=== PATIENT | male | born 1980 | race African-American/Black ===

== ENCOUNTER 2024-01-07 14:36 | Emergency (ER) | payer OTHER ==
[2024-01-07 15:12] LABS: Absolute Basophils 0.1 K/uL (0-0.5); Absolute Eosinophils 0.1 K/uL (0-0.5); Absolute Monocytes 0.5 K/uL (0.1-1.3); Absolute Neutrophil 2.8 K/uL (1.8-8.0); Eosinophils % 1.2 % (0-4.4); Hematocrit 41.2 % (39.6-49.0); Hemoglobin 13.8 g/dL (13.6-17.9); Lymphocytes % 36.6 % (15.3-44.8); MCH 24.5 pg (27.0-35.0); MCHC 33.4 g/dL (32.0-36.0); MCV 73.1 fL (80-100); MPV 9.6 fL (7.6-11.3); Monocytes % 8.7 % (3.3-12.3); Neutrophils % 52.5 % (41.7-73.7); Nucleated Red Blood Cells % 0.1 % (0-0); Platelets 297 thou/uL (152-406); RBC Red Blood Cell Count 5.64 M/uL (4.33-5.43)
[2024-01-07 15:24] LABS: PT Prothrombin Time 12.8 SECONDS (9.5-12.5); PTT, Activated Partial Thromb 32.8 SECONDS (24.3-36.9); Protime INR 1.17
[2024-01-07 15:35] LABS: ALT/SGPT 16 U/L (16-61); AST/SGOT 12 U/L (15-37); Albumin 3.9 g/dL (3.4-5.0); Alkaline Phosphatase 57 U/L (45-117); Anion Gap 7.7 mEq/L (5.0-15.0); BUN Blood Urea Nitrogen 13 mg/dL (7-18); Bicarbonate 30 mEq/L (21-32); Bilirubin Direct 0.3 mg/dL (0-0.2); Bilirubin Indirect, Calculated 0.9 mg/dL (0.2-0.8); Bilirubin Total 1.2 mg/dL (0.2-1.0); Globulin 4.1 g/dL (2.3-3.5); Glomerular Filtration Rate 85 ml/min (=/>90); Glucose Level 91 mg/dL (74-106); Potassium 3.7 mEq/L (3.5-5.1); Sodium Level 137 mEq/L (136-145)
[2024-01-07 15:40] LABS: Barbiturates NEGATIVE (NEGATIVE); Benzodiazepines NEGATIVE (NEGATIVE); Cocaine NEGATIVE (NEGATIVE); METHAMPHETAM NEGATIVE (NEGATIVE); Methadone NEGATIVE (NEGATIVE); Opiates NEGATIVE (NEGATIVE); Phencyclidine NEGATIVE (NEGATIVE); THC Cannibis NEGATIVE (NEGATIVE)
--- NOTE | 2024-01-07 16:07 | ER ---
Nurse's Notes [facility] Name: Des Workman Age: 43 yrs Sex: Male : 1980 Arrival Date: 01/07/2024 Time: 14:36 Bed 17 Private MD: Diagnosis: Altered mental status, unspecified Presentation: 01/06 14:37 Chief complaint: EMS states: "Drank coffee" at [facility] - went unresponsive. EMS ld1 administered Narcan, pt AAOX4 upon arrival to ER. Coronavirus screen: At this time, the client does not indicate any symptoms associated with coronavirus-19. Ebola Screen: No symptoms or risks identified at this time. Risk Assessment: Do you want to hurt yourself or someone else? Patient reports no desire to harm self or others. Onset of symptoms was January 07, 2024 at 14:38. 14:37 Method Of Arrival: Ambulatory ld1 14:37 Acuity: ROGELIO 3 ld1 14:37 Initial Sepsis Screen: Does the patient meet any 2 criteria? No. Patient's initial ld1 sepsis screen is negative. Does the patient have a suspected source of infection? No. Patient's initial sepsis screen is negative. Triage Assessment: 15:02 General: Appears in no apparent distress. comfortable, Behavior is calm, cooperative, ld1 appropriate for age. Pain: Denies pain. EENT: No signs and/or symptoms were reported regarding the EENT system. Neuro: Level of Consciousness is awake, alert, obeys commands, Oriented to person, place, time, situation. Cardiovascular: Capillary refill < 3 seconds Patient's skin is warm and dry. Respiratory: Airway is patent Respiratory effort is even, unlabored. GI: Abdomen is flat, non-distended. : No signs and/or symptoms were reported regarding the genitourinary system. Derm: No signs and/or symptoms reported regarding the dermatologic system. Musculoskeletal: No signs and/or symptoms reported regarding the musculoskeletal system. Historical: - Allergies: 15:02 No Known Allergies; ld1 - PMHx: 15:02 Diabetes mellitus; Depressive disorder; Hypertensive disorder; ld1 - Immunization history:: Adult Immunizations up to date. - Infectious Disease History:: Denies. - Social history:: Smoking status: Patient denies any tobacco usage or history of. Patient/guardian denies using alcohol. Screenin:13 [facility] ED Fall Risk Assessment (Adult) History of falling in the last 3 months, ld1 including since admission No falls in past 3 months (0 pts). Abuse screen: Denies threats or abuse. Denies injuries from another. Nutritional screening: No deficits noted. Tuberculosis screening: No symptoms or risk factors identified. Assessment: 15:13 Reassessment: See triage assessment. ld1 Vital Signs: 15:02 BP 151 / 83; Pulse 81; Resp 18; Pulse Ox 99% on R/A; ld1 15:13 Weight 113.4 kg; Height 6 ft. 0 in. ; Pain 0/10; ld1 15:13 BP 151 / 82; Pulse 79; Resp 18; Pulse Ox 100% on R/A; ld1 15:59 BP 138 / 79; Pulse 87; Resp 18; Pulse Ox 99% on R/A; ld1 15:13 Body Mass Index 33.91 (113.40 kg, 182.88 cm) ld1 15:13 Pain Scale: Adult ld1 ED Course: 14:36 Patient arrived in ED. jh7 14:37 Zahra Jerome FNP is PHCP. jh7 14:37 Jhony Sexton DO is Attending Physician. jh7 14:38 Triage completed. ld1 15:01 Milana Sexton, RN is Primary Nurse. ld1 15:02 Urine Drug Screen Sent. ld1 15:13 No provider procedures requiring assistance completed. Inserted saline lock: 20 gauge ld1 in left antecubital area, using aseptic technique. Blood collected. 15:13 Arm band placed on right wrist. EKG completed in triage. Results shown to MD. ld1 15:13 Patient has correct armband on for positive identification. Placed in gown. Bed in low ld1 position. Call light in reach. Side rails up X2. panel monitor on. Pulse ox on. NIBP on. Door closed. Noise minimized. Warm blanket given. 16:14 IV discontinued, intact, bleeding controlled, No redness/swelling at site. ld1 16:14 Provided Education on: discharge instructions. ld1 Administered Medications: No medications were administered Medication: 15:13 VIS not applicable for this client. ld1 Outcome: 16:06 Discharge ordered by . [facility] 16:13 Discharged to Law Enforcement ld1 16:13 Condition: stable 16:13 Discharge instructions given to patient, police, Instructed on discharge instructions, follow up and referral plans. Demonstrated understanding of instructions, follow-up care, 16:15 Patient left the ED. ld1 Signatures: Milana Sexton RN RN ld1 Zahra Jerome, CRIME SCENE EVIDENCE TECHNICIAN CRIME SCENE EVIDENCE TECHNICIAN jh7
--- NOTE | 2024-01-07 16:07 | EDPHYS ---
Physician Documentation [facility] Name: Des Workman Age: 43 yrs Sex: Male : 1980 Arrival Date: 01/07/2024 Time: 14:36 Bed 17 Private MD: ED Physician Jhony Sexton HPI: 01/06 15:02 This 43 yrs old Male presents to ER via Ambulatory with complaints of possible overdose.[facility] 15:02 The patient presents to the emergency department with a possible overdose. Context: [facility] Time: 2 hour(s) ago, the OD/poisoning occurred at [facility], Previous OD/poisoning history: none. 43-year-old inmate was drinking his coffee and was found unresponsive shortly after. EMS gave 1 mg of Narcan at 12:55 PM and the patient very shortly after became alert and oriented x 4. He is alert and oriented x 4 in the ER and has no complaints. He denies ingesting anything other than his coffee.. Historical: - Allergies: 15:02 No Known Allergies; ld1 - PMHx: 15:02 Diabetes mellitus; Depressive disorder; Hypertensive disorder; ld1 - Immunization history:: Adult Immunizations up to date. - Infectious Disease History:: Denies. - Social history:: Smoking status: Patient denies any tobacco usage or history of. Patient/guardian denies using alcohol. ROS: 15:02 Constitutional: Negative for fever, chills, and weight loss, Eyes: Negative for injury, jh7 pain, redness, and discharge, Neck: Negative for injury, pain, and swelling, Cardiovascular: Negative for chest pain, palpitations, and edema, Respiratory: Negative for shortness of breath, cough, wheezing, and pleuritic chest pain, Abdomen/GI: Negative for abdominal pain, nausea, vomiting, diarrhea, and constipation, MS/Extremity: Negative for injury and deformity, Skin: Negative for injury, rash, and discoloration, Neuro: Negative for headache, weakness, numbness, tingling, and seizure, 15:02 All other systems are negative, Exam: 15:02 Constitutional: This is a well developed, well nourished patient who is awake, alert, jh7 and in no acute distress. Head/Face: Normocephalic, atraumatic. Eyes: Pupils equal round and reactive to light, extra-ocular motions intact. Lids and lashes normal. Conjunctiva and sclera are non-icteric and not injected. Cornea within normal limits. Periorbital areas with no swelling, redness, or edema. Neck: Trachea midline, no thyromegaly or masses palpated, and no cervical lymphadenopathy. Supple, full range of motion without nuchal rigidity, or vertebral point tenderness. No Meningismus. Cardiovascular: Regular rate and rhythm with a normal S1 and S2. No gallops, murmurs, or rubs. Normal PMI, no JVD. No pulse deficits. Respiratory: Lungs have equal breath sounds bilaterally, clear to auscultation and percussion. No rales, rhonchi or wheezes noted. No increased work of breathing, no retractions or nasal flaring. Abdomen/GI: Soft, non-tender, with normal bowel sounds. No distension or tympany. No guarding or rebound. No evidence of tenderness throughout. Back: No spinal tenderness. No costovertebral tenderness. Full range of motion. Skin: Warm, dry with normal turgor. Normal color with no rashes, no lesions, and no evidence of cellulitis. MS/ Extremity: Pulses equal, no cyanosis. Neurovascular intact. Full, normal range of motion. Neuro: Awake and alert, GCS 15, oriented to person, place, time, and situation. Cranial nerves II-XII grossly intact. Motor strength 5/5 in all extremities. Sensory grossly intact. Cerebellar exam normal. Normal gait. Vital Signs: 15:02 BP 151 / 83; Pulse 81; Resp 18; Pulse Ox 99% on R/A; ld1 15:13 Weight 113.4 kg; Height 6 ft. 0 in. ; Pain 0/10; ld1 15:13 BP 151 / 82; Pulse 79; Resp 18; Pulse Ox 100% on R/A; ld1 15:59 BP 138 / 79; Pulse 87; Resp 18; Pulse Ox 99% on R/A; ld1 15:13 Body Mass Index 33.91 (113.40 kg, 182.88 cm) ld1 15:13 Pain Scale: Adult ld1 MDM: 14:37 Patient medically screened. [facility] 16:10 Differential diagnosis: Ingestion/exposure to Narcotics hypoglycemia. Data reviewed: [facility] vital signs, nurses notes, lab test result(s), EKG. Independent interpretation of the following test(s) in the Emergency Department EKG: See my EKG interpretation above. Historians other than the Patient: EMS: EMS. Care significantly affected by the following chronic conditions: Diabetes, Hypertension. Counseling: I had a detailed discussion with the patient and/or guardian regarding the historical points, exam findings, and any diagnostic results supporting the discharge/admit diagnosis, to return to the emergency department if symptoms worsen or persist or if there are any questions or concerns that arise at home. Response to treatment: the patient's symptoms have resolved after treatment, Symptoms resolved after Narcan was given and route to the ER.. 01/06 14:37 Order name: Acetaminophen; Complete Time: 16:04 [facility] 01/06 14:37 Order name: Basic Metabolic Panel; Complete Time: 16:04 [facility] 01/06 14:37 Order name: CBC with Diff; Complete Time: 15:29 [facility] 01/06 14:37 Order name: ETOH Level; Complete Time: 15:33 [facility] 01/06 14:37 Order name: Hepatic Function; Complete Time: 16:04 [facility] 01/06 14:37 Order name: PT-INR; Complete Time: 15:29 [facility] 01/06 14:37 Order name: Ptt, Activated; Complete Time: 15:29 [facility] 01/06 14:37 Order name: Salicylate [facility] 01/06 14:37 Order name: Urine Drug Screen; Complete Time: 15:51 [facility] 01/06 14:37 Order name: EKG; Complete Time: 14:38 [facility] 01/06 14:37 Order name: EKG - Nurse/Tech; Complete Time: 15:13 [facility] 01/06 14:37 Order name: IV Saline Lock; Complete Time: 15:02 [facility] 01/06 14:37 Order name: Labs collected and sent; Complete Time: 15:02 [facility] 01/06 14:37 Order name: Suicide Screening ([place]); Complete Time: 15:02 [facility] EC:15 Rate is 80 beats/min. Rhythm is regular. QRS [place] is Normal. SD interval is normal at jh7 220 msec. QRS interval is normal at 94 msec. QT interval is normal at 346 msec. No Q waves. T waves are Normal. No ST changes noted. Clinical impression: 1st degree heart block. Administered Medications: No medications were administered Disposition: 15:29 I was immediately available on-site in the Emergency Department for consultation in the ms3 care of the patient. Disposition Summary: 01/07/24 16:06 Discharge Ordered Notes: Location: Home [facility] Problem: new [facility] Symptoms: are resolved [facility] Condition: Stable [facility] Diagnosis - Altered mental status, unspecified [facility] Followup: [facility] - With: Private Physician - When: 2 - 3 days - Reason: Recheck today's complaints Discharge Instructions: - Discharge Summary Sheet [facility] - Opioid Overdose [facility] Forms: - Medication Reconciliation Form [facility] - Thank You Letter [facility] - Patient Portal Instructions [facility] - Leadership Thank You Letter [facility] Signatures: Dispatcher [employer] EDMS Jhony Sexton, DO ms3 Milana Sexton RN RN ld1 Zahra Jerome, PRODUCT DEVELOPMENT CARPENTER PRODUCT DEVELOPMENT CARPENTER [facility] Corrections: (The following items were deleted from the chart) 14:38 14:38 ACETAMINOPHEN+C.LAB.BRZ ordered. EDMS EDMS 14:38 14:38 BASIC METABOLIC PANEL+C.LAB.BRZ ordered. EDMS EDMS 14:38 14:38 CBC+H.LAB.BRZ ordered. EDMS EDMS 14:38 14:38 ETHANOL+C.LAB.BRZ ordered. EDMS EDMS 14:38 14:38 HEPATIC FUNCTION+C.LAB.BRZ ordered. EDMS EDMS 14:38 14:38 PROTIME (+INR)+COAG.LAB.BRZ ordered. EDMS EDMS 14:38 14:38 PTT, ACTIVATED+COAG.LAB.BRZ ordered. EDMS EDMS 14:38 14:38 SALICYLATE+C.LAB.BRZ ordered. EDMS EDMS 14:38 14:38 URINE DRUG SCREEN+UC.LAB.BRZ ordered. EDMS EDMS
[2024-01-08 01:31] VITALS: BP 138/79; O2SAT 99
--- NOTE | 2024-01-08 16:17 | EKG ---
Test Date: 2024-01-07 Test Time: 15:15:07 Order Filler: JIMMY MEASUREMENT RESULTS: Intervals: Rate: 80 WI: 220 QRSD: 94 QT: 346 QTc: 399 [place]: P: 64 WI: 220 QRS: 60 T: 55 INTERPRETIVE STATEMENTS: Sinus rhythm with 1st degree AV block Otherwise normal ECG No previous ECG available for comparison Electronically Signed On 01-08-24 16:14:48 CDT by Onur Grijalva
== END 2024-01-07 16:15 | disposition home or self-care (01) ==
LOC: ER 14:36
DX: R41.82 Altered mental status, unspecified (principal)
CPT/HCPCS: 36415; 80048; 80076; 80143; 80179; 80307; 82077; 85025; 85610; 85730; 93005; 99284